=== PATIENT | female | born 1980 | race Caucasian/White ===

== ENCOUNTER 2017-06-25 14:24 | Emergency (ER) | payer MEDICAID ==
[2017-06-25 14:31] VITALS: BP 149/97
[2017-06-25] MEDS ORDERED: IBUPROFEN 800 MG TABLET PO ONE (15:36)
[2017-06-25] MEDS ORDERED: ONDANSETRON 4 MG TAB.RAPDIS PO ONE (15:36)
[2017-06-25] MEDS ORDERED: ACETAMINOPHEN 325 MG TABLET PO ONE (15:36)
[2017-06-25] MEDS ORDERED: PENICILLIN V POTASSIUM 500 MG TABLET PO ONE (15:36)
--- NOTE | 2017-06-25 15:42 | ER Document Report ---
HPI - HPI Patient complains to provider of: toothache Onset: Other - worse for 2 days Quality of pain: Throbbing Pain Level: 5 Context: 37 yo lost part of filling lower right 2nd molar 2 days ago, increased pain. No fever or facial swelling. Associated Symptoms: None Exacerbated by: Denies Relieved by: Denies - ROS ROS below otherwise negative: Yes Systems Reviewed and Negative: Yes All other systems reviewed and negative - REPRODUCTIVE LMP: 06/15/17 Past Medical History - General Information source: Patient - Social History Smoking Status: Current Every Day Smoker Chew tobacco use (# tins/day): No Frequency of alcohol use: None Drug Abuse: None Lives with: Family Family History: Reviewed & Not Pertinent Patient has suicidal ideation: No Patient has homicidal ideation: No - Medical History Medical History: Negative Renal/ Medical History: Denies: Hx Peritoneal Dialysis Surgical Hx: Negative Vertical Provider Document - CONSTITUTIONAL Agree With Documented VS: Yes Exam Limitations: No Limitations General Appearance: No Apparent Distress - INFECTION CONTROL TRAVEL OUTSIDE OF THE [place] IN LAST 30 DAYS: No - HEENT HEENT: Normocephalic Notes: partial filling and decay 2nd molar lower right, no gingival swelling. - NECK Neck: Supple. negative: Lymphadenopathy-Left, Lymphadenopathy-Right - RESPIRATORY Respiratory: Breath Sounds Normal, No Respiratory Distress O2 Sat by Pulse Oximetry: 98 - CARDIOVASCULAR Cardiovascular: Regular Rate, Regular Rhythm - NEURO Level of Consciousness: Awake, Alert, Appropriate - DERM Integumentary: Warm, Dry Course - Vital Signs Vital signs: Temp Pulse Resp BP Pulse Ox 98.4 F 74 20 149/97 H 98 06/25/17 14:30 06/25/17 14:30 06/25/17 14:30 06/25/17 14:30 06/25/17 14:30 Discharge - Discharge Clinical Impression: 2nd molar lower right decay/pain Condition: Good Disposition: HOME, SELF-CARE Instructions: Dentist, Dental Infection or Abscess ([facility]), Use of Over-The- Counter Ibuprofen ([facility]), Penicillin V K ([facility]), Toothache ([facility]), Warm Packs ([facility]) Additional Instructions: warm compress see dentist to er if worse Prescriptions: Ibuprofen [Motrin 800 mg Tablet] 800 mg PO Q8HP PRN #30 tablet PRN Reason: Penicillin V Potassium [Penicillin Vk 500 mg Tablet] 500 mg PO QID #40 tablet
== END 2017-06-25 15:53 | disposition home or self-care (01) ==
LOC: ER 14:24
DX: K02.9 Dental caries, unspecified (principal); K08.89 Other specified disorders of teeth and supporting structures; F17.200 Nicotine dependence, unspecified, uncomplicated
CPT/HCPCS: 99282; J3490 ×3; S0119

== ENCOUNTER 2017-10-27 18:38 | Emergency (ER) | payer SELFPAY ==
--- NOTE | 2017-10-27 18:59 | ER Document Report ---
HPI - HPI Patient complains to provider of: dental abscess Onset: Yesterday Onset/Duration: Gradual Pain Level: 5 Context: 37 yo female with dental decay developed swelling and abscess since yesterday. No fever. Associated Symptoms: None Exacerbated by: Denies Relieved by: Denies - ROS ROS below otherwise negative: Yes Systems Reviewed and Negative: Yes All other systems reviewed and negative Past Medical History - General Information source: Patient - Social History Smoking Status: Current Every Day Smoker Frequency of alcohol use: None Drug Abuse: None Lives with: Family Family History: Reviewed & Not Pertinent - Medical History Medical History: Negative Renal/ Medical History: Denies: Hx Peritoneal Dialysis Surgical Hx: Negative Vertical Provider Document - CONSTITUTIONAL Agree With Documented VS: Yes Exam Limitations: No Limitations General Appearance: No Apparent Distress - INFECTION CONTROL TRAVEL OUTSIDE OF THE [place] IN LAST 30 DAYS: No - HEENT HEENT: Normocephalic Notes: decay with abscess left lower 1st molar - NECK Neck: Supple. negative: Lymphadenopathy-Left, Lymphadenopathy-Right - MUSCULOSKELETAL/EXTREMETIES Musculoskeletal/Extremeties: MAEW - NEURO Level of Consciousness: Awake - DERM Integumentary: Abscess Course - Vital Signs Vital signs: Temp Pulse Resp BP Pulse Ox 98.2 F 77 18 124/75 95 10/27/17 18:47 10/27/17 18:47 10/27/17 18:47 10/27/17 18:47 10/27/17 18:47 Discharge - Discharge Clinical Impression: Dental abscess Condition: Good Disposition: HOME, SELF-CARE Instructions: Dentist, Penicillin V K ([facility]), Toothache ([facility]), Warm Packs ([facility]) Additional Instructions: Warm compress Penicillin Tylenol Motrin See the dentist Return to the emergency room for worsening of symptoms Prescriptions: Ibuprofen [Motrin 800 mg Tablet] 800 mg PO Q8HP PRN #30 tablet PRN Reason: Penicillin V Potassium [Penicillin Vk 500 mg Tablet] 500 mg PO QID #40 tablet Forms: Return to Work
[2017-10-27] MEDS ORDERED: PENICILLIN V POTASSIUM 500 MG TABLET PO ONE (19:20)
[2017-10-27] MEDS ORDERED: LIDOCAINE 2% VISCOUS SOLN 20 ML UDCUP PO ONE (19:20)
[2017-10-27] MEDS ORDERED: IBUPROFEN 800 MG TABLET PO ONE (19:20)
[2017-10-27 19:49] VITALS: BP 136/86
== END 2017-10-27 19:47 | disposition home or self-care (01) ==
LOC: ER 18:38
DX: K04.7 Periapical abscess without sinus (principal); K02.9 Dental caries, unspecified; F17.200 Nicotine dependence, unspecified, uncomplicated
CPT/HCPCS: 99283; J3490

== ENCOUNTER 2018-03-17 04:04 | Inpatient (IN) | payer SELFPAY ==
[2018-03-17 04:45] LABS: ABSOLUTE BASOPHILS # (AUTO) 0.1 10^3/uL (0.0-0.2); ABSOLUTE LYMPHOCYTES (AUTO) 1.9 10^3/uL (0.5-4.7); ABSOLUTE MONOCYTES (AUTO) 0.6 10^3/uL (0.1-1.4); BASOPHILS % (AUTO) 0.5 % (0-2); EOSINOPHILS % (AUTO) 0.3 % (0-6); HEMOGLOBIN 11.5 g/dL (12.0-15.5); LYMPHOCYTES % (AUTO) 18.2 % (13-45); MEAN CORPUSCULAR HEMOGLOBIN 31.7 pg (27.0-33.4); MEAN CORPUSCULAR HGB CONC 33.8 g/dL (32.0-36.0); MEAN CORPUSCULAR VOLUME 94 fl (80-97); MONOCYTES % (AUTO) 5.6 % (3-13); PLATELET COUNT 241 10^3/uL (150-450); RED BLOOD COUNT 3.62 10^6/uL (3.72-5.28); RED CELL DISTRIBUTION WIDTH 13.4 % (11.5-14.0); SEGMENTED NEUTROPHILS % (AUTO) 75.4 % (42-78); TOTAL CELLS COUNTED % (AUTO) 100 %; WHITE BLOOD COUNT 10.6 10^3/uL (4.0-10.5)
[2018-03-17] MEDS ORDERED: FENTANYL CITRATE INJ/PF 100 MCG/2 ML AMPUL IV ONE (05:12)
--- NOTE | 2018-03-17 05:22 | ER Document Report ---
ED Medical Screen (RME) - General Chief Complaint: Abdominal Pain Stated Complaint: ABDOMINAL PAIN Time Seen by Provider: 03/17/18 04:49 Notes: Patient is a 38-year-old female who presents to the emergency department with upper abdominal pain which started at 1800 last night. She describes the pain as a sharp pain that radiates to her left posterior shoulder. Her last menstrual period was last week. She does admit to drinking and states that is her "drug." Tonight she had an episode of diarrhea and has not voided since yesterday morning. TRAVEL OUTSIDE OF THE [place] IN LAST 30 DAYS: No - Related Data Allergies/Adverse Reactions: red dye Allergy (Verified 03/17/18 05:08) Past Medical History - General Information source: Patient - Social History Cigarette use (# per day): Yes Frequency of alcohol use: Occasional Drug Abuse: None Renal/ Medical History: Denies: Hx Peritoneal Dialysis Review of Systems - Review of Systems Gastrointestinal: See HPI Physical Exam - Abdominal Inspection: Normal Distension: Distended Tenderness: Tender, Guarding Organomegaly: No organomegaly Course - Laboratory Result Diagrams: 03/17/18 04:33 03/17/18 04:33 Laboratory results interpreted by me: 03/17/18 04:33 WBC 10.6 H RBC 3.62 L Hgb 11.5 L Hct 34.0 L
[2018-03-17] MEDS ORDERED: NORMAL SALINE 1000 ML 1,000 ML IV ONE (05:24)
[2018-03-17 05:31] LABS: ALANINE AMINOTRANSFERASE 46 U/L (9-52); ALBUMIN 3.5 g/dL (3.5-5.0); ALKALINE PHOSPHATASE 76 U/L (38-126); ANION GAP 15 (5-19); ASPARTATE AMINO TRANSFERASE 74 U/L (14-36); BILIRUBIN,DIRECT 0.2 mg/dL (0.0-0.4); BILIRUBIN,TOTAL 0.9 mg/dL (0.2-1.3); BLOOD UREA NITROGEN 8 mg/dL (7-20); CALCIUM 8.6 mg/dL (8.4-10.2); CARBON DIOXIDE 19 mmol/L (22-30); CHLORIDE 104 mmol/L (98-107); GLUCOSE 172 mg/dL (75-110); LIPASE 95.9 U/L (23-300); POTASSIUM 3.8 mmol/L (3.6-5.0); SODIUM 137.9 mmol/L (137-145); TOTAL PROTEIN 6.3 g/dL (6.3-8.2)
--- NOTE | 2018-03-17 06:21 | ER Document Report ---
ED GI/ - General Mode of Arrival: Ambulatory Information source: Patient TRAVEL OUTSIDE OF THE [place] IN LAST 30 DAYS: No <CECI CASTRO - Last Filed: 03/17/18 07:38> <SANDRA BROWN - Last Filed: 03/17/18 08:47> - General Chief Complaint: Abdominal Pain Stated Complaint: ABDOMINAL PAIN Time Seen by Provider: 03/17/18 04:49 Notes: 38-year-old female who presents to the emergency department today with complaints of upper abdominal pain. Patient states her pain began yesterday around 1800. Patient states the pain radiates to her upper back and into her shoulder. Patient states she is only able to lay on her right side, stating if she lays on her back or left side she has increasing pain that radiates to her shoulder. Patient states her last menstrual period began 4 days ago and ended yesterday. Patient states that it was on time but manager lan than a normal period. Patient states her pain is exacerbated with movement and deep breathing. ( CECI CASTRO) - Related Data Allergies/Adverse Reactions: red dye Allergy (Verified 03/17/18 05:08) Past Medical History - General Information source: Patient - Social History Smoking Status: Current Every Day Smoker Cigarette use (# per day): Yes Frequency of alcohol use: Occasional Drug Abuse: None Family History: Reviewed & Not Pertinent Patient has suicidal ideation: No Patient has homicidal ideation: No Surgical Hx: Negative <CECI CASTRO - Last Filed: 03/17/18 07:38> Review of Systems - Review of Systems Constitutional: No symptoms reported EENT: No symptoms reported Cardiovascular: No symptoms reported Respiratory: See HPI, Hurts to breathe Gastrointestinal: See HPI, Abdominal pain - radiating to back and shoulder Genitourinary: No symptoms reported Female Genitourinary: No symptoms reported Musculoskeletal: No symptoms reported Skin: No symptoms reported Hematologic/Lymphatic: No symptoms reported Neurological/Psychological: No symptoms reported -: Yes All other systems reviewed and negative <CECI CASTRO - Last Filed: 03/17/18 07:38> Physical Exam <CECI CASTRO - Last Filed: 03/17/18 07:38> <SANDRA BROWN - Last Filed: 03/17/18 08:47> - Vital signs Vitals: Pulse Resp BP Pulse Ox 73 23 H 121/59 L 100 03/17/18 05:41 03/17/18 05:41 03/17/18 05:41 03/17/18 05:41 - Notes Notes: Physical Exam: General: Alert, appears well. HEENT: Normocephalic. Atraumatic. PERRL. Extraocular movements intact. Oropharynx clear. Neck: Supple. Non-tender. Respiratory: No respiratory distress. Coarse breath sounds bilaterally consistent with smoking history. Cardiovascular: Regular rate and rhythm. Abdominal: Diffuse tenderness with palpation without any focal area of increased tenderness. Positive guarding. Reports that lying on her left side causes pain to radiate into shoulder. Unable to lie flat on back for abdominal exam. No distension. Normal Bowel Sounds. Back: Non-tender. No deformity or step off. Extremities: Moves all four extremities. Upper extremities: Normal inspection. Normal ROM. Lower extremities: Normal inspection. No edema. Normal ROM. Neurological: Normal cognition. AAOx4. Normal speech. Psychological: Normal affect. Normal Mood. Skin: Warm. Dry. Normal color. (CECI CASTRO) Course - Laboratory Result Diagrams: 03/17/18 04:33 03/17/18 04:33 <CECI CASTRO - Last Filed: 03/17/18 07:38> - Laboratory Result Diagrams: 03/17/18 04:33 03/17/18 04:33 - Diagnostic Test Radiology reviewed: Image reviewed, Reports reviewed - IV contrast CT scan of the abdomen pelvis shows extensive hemoperitoneum which is most significant in the left upper quadrant. There are low-density lesions in the spleen that may be the cause of the hemoperitoneum. There is a large amount of hyperdense fluid in the pelvis and some fluid around the liver. - EKG Interpretation by Me EKG shows normal: Sinus rhythm, [place], Intervals, QRS Complexes, ST-T Waves Rate: Normal - 57 Rhythm: NSR - Consults Dr. Montalvo Time consulted: 08:30 Consulted provider: will come to ER <SANDRA BROWN - Last Filed: 03/17/18 08:47> - Re-evaluation Re-evalutation: 03/17/18 08:26 8:01 AM Phone call was placed to the [facility] trauma service. I did discuss the case with the on-call trauma surgeon, who stated that I needed to talk with the general surgery department as this was not trauma related issues. 8:07 AM phone call was placed through refer direct to talk with the general surgeon ammonium hydroxide operator. 03/17/18 08:33 Dr. Montalvo was called to be made aware of the patient, after he reviewed her CT scan he thought that he could take care of her here and was going to come see the patient. 03/17/18 08:45 Dr. Flynn Dozier did return my call from [facility] surgery department, informed him that her surgeon was seeing the patient and felt comfortable taking care of her here and that I would call him back if anything changed. ( SANDRA BROWN) - Vital Signs Vital signs: Temp Pulse Resp BP Pulse Ox 97.8 F 73 21 H 105/56 L 99 03/17/18 08:01 03/17/18 05:41 03/17/18 08:31 03/17/18 08:31 03/17/18 08:31 - Laboratory Laboratory results interpreted by me: 03/17/18 03/17/18 03/17/18 04:33 04:33 08:00 WBC 10.6 H RBC 3.62 L Hgb 11.5 L Hct 34.0 L Carbon Dioxide 19 L Creatinine 0.51 L Glucose 172 H AST 74 H Crossmatch See Detail Critical Care Note - Critical Care Note Total time excluding time spent on procedures (mins): 40 <SANDRA BROWN - Last Filed: 03/17/18 08:47> Discharge <CECI CASTRO - Last Filed: 03/17/18 07:38> - Discharge Admitting Provider: Surgicalist Unit Admitted: Surgical Floor <SANDRA BROWN - Last Filed: 03/17/18 08:47> - Discharge Clinical Impression: Hemoperitoneum (nontraumatic), Splenic lesion Spleen hematoma Qualifiers: Encounter type: initial encounter Qualified Code(s): S36.029A - Unspecified contusion of spleen, initial encounter Condition: Serious Disposition: ADMITTED INPATIENT Scribe Attestation: 03/17/18 07:04 I personally performed the services described in the documentation, reviewed and edited the documentation which was dictated to the scribe in my presence, and it accurately records my words and actions. (SANDRA BROWN) Scribe Documentation - Scribe Written by Scribe:: Martín Davis, 03/17/2018 [id number] acting as scribe for :: Yelena <CECI CASTRO - Last Filed: 03/17/18 07:38>
[2018-03-17] MEDS ORDERED: RINGERS SOLUTION,LACTATED 1,000 ML IV ONE (06:22)
[2018-03-17] MEDS ORDERED: ONDANSETRON HCL INJ/PF 4 MG/2 ML SDV IV ONE ×2 (06:22→08:56)
[2018-03-17] MEDS ORDERED: MORPHINE SULFATE 10 MG/ML INJ IV ONE ×2 (06:22→08:56)
--- NOTE | 2018-03-17 08:05 | RADIOLOGY REPORT (SQ) ---
CLINICAL HISTORY: Diffuse abdominal pain, radiates to left shoulder COMPARISON: None. TECHNIQUE: CT ABDOMEN PELVIS WITH IV CONTRAST on 03/17/2018 7:03 AM CDT This exam was performed according to our departmental dose-optimization program, which includes automated exposure control, adjustment of the mA and/or kV according to patient size and/or use of iterative reconstruction technique. FINDINGS: Lower lungs are clear. Abdomen: Liver is normal in appearance. There is perihepatic ascites. There is no biliary dilatation. Gallbladder is normal in appearance. There are hypodensities within the upper pole of the spleen. There is extensive perisplenic hyperdense fluid. The adrenal glands and kidneys are unremarkable. Pancreas is normal. Abdominal aorta is normal in course and caliber without aneurysm. There is no free air. There is no retroperitoneal adenopathy. Pelvis: There is no bowel obstruction. Urinary bladder is unremarkable. There is no free fluid. Uterus is normal in size. Appendix is normal. There is large amount of hyperdense fluid in the pelvis. Skeleton: There are no acute osseous findings. No suspicious bony lesions. IMPRESSION: Extensive hemoperitoneum, most significant in the left upper quadrant. Low-density lesions in the spleen are indeterminate but are likely the cause of hemoperitoneum. Underlying splenic injury is not excluded although no such history has been given. Findings were discussed with patient's emergency department physician.
[2018-03-17] MEDS ORDERED: NORMAL SALINE 250 ML IV PRN (08:16)
[2018-03-17 08:22] LABS: INTERNATIONAL RATION (INR) 0.96; PROTHROMBIN TIME 13.3 SEC (11.4-15.4)
[2018-03-17] MEDS ORDERED: ROCURONIUM BROMIDE INJ 50 MG/5 ML VIAL IV ONE (08:44)
[2018-03-17] MEDS ORDERED: SUCCINYLCHOLINE CHLORIDE INJ 200 MG/10 ML VIAL ONE (08:44)
--- NOTE | 2018-03-17 08:56 | PDOC H&P ---
History of Present Illness Patient complains of: Left upper quadrant and left flank pain History of Present Illness: ANTON MARKHAM is a 38 year old female with no previous medical history. She reports increasing amounts of left upper quadrant and left flank pain over the last 12 hours. The patient presented to the emergency department and was found to have a large splenic hematoma with active extravasation. The patient denies any trauma. She denies car accident, falls, or any other blunt mechanism. She denies chest pain, shortness of breath, fevers, chills, nausea, vomiting, melena , hematochezia, hematemesis. She does report fatigue and malaise as well as severe left back pain and flank pain. Past Medical History Medical History: None Past Surgical History Past Surgical History: Reports: None Social History Smoking Status: Current Every Day Smoker Family History Family History: Reviewed & Not Pertinent Parental Family History Reviewed: Yes Children Family History Reviewed: Yes Sibling(s) Family History Reviewed.: Yes Medication/Allergy Home Medications: No Home Medications 03/17/18 Allergies/Adverse Reactions: red dye Allergy (Verified 03/17/18 05:08) Review of Systems Constitutional: PRESENT: fatigue, weakness. ABSENT: anorexia, chills, fever(s) , headache(s) Eyes: ABSENT: visual disturbances Ears: ABSENT: hearing changes Nose, Mouth, and Throat: ABSENT: mouth pain, sore throat Cardiovascular: ABSENT: chest pain Respiratory: ABSENT: cough, dyspnea Gastrointestinal: PRESENT: abdominal pain. ABSENT: constipation, diarrhea, heartburn Musculoskeletal: PRESENT: back pain Integumentary: ABSENT: pruritus, rash Neurological: ABSENT: abnormal gait, abnormal speech, confusion, convulsions Psychiatric: ABSENT: anxiety, depression Endocrine: ABSENT: cold intolerance, heat intolerance Hematologic/Lymphatic: ABSENT: easy bleeding, easy bruising Physical Exam Vital Signs: Temp Pulse Resp BP Pulse Ox 97.8 F 73 21 H 105/56 L 99 03/17/18 08:01 03/17/18 05:41 03/17/18 08:31 03/17/18 08:31 03/17/18 08:31 Intake & Output 03/16/18 03/17/18 03/18/18 06:59 06:59 06:59 Intake Total 1000 Balance 1000 Weight 75 kg General appearance: PRESENT: no acute distress Head exam: PRESENT: atraumatic, normocephalic Eye exam: PRESENT: EOMI, PERRLA. ABSENT: scleral icterus Mouth exam: ABSENT: moist, neck supple Teeth exam: ABSENT: poor dentation Neck exam: ABSENT: meningismus, tenderness, thyromegaly, tracheal deviation Respiratory exam: PRESENT: clear to auscultation vicky. ABSENT: chest wall tenderness Cardiovascular exam: PRESENT: RRR Pulses: PRESENT: normal radial pulses Vascular exam: PRESENT: normal capillary refill, pallor GI/Abdominal exam: PRESENT: tenderness. ABSENT: distended, rebound Rectal exam: PRESENT: deferred Extremities exam: ABSENT: clubbing Musculoskeletal exam: ABSENT: deformity Neurological exam: PRESENT: alert, awake, oriented to person, oriented to place , oriented to time, oriented to situation, CN II-XII grossly intact Psychiatric exam: PRESENT: anxious. ABSENT: agitated, depressed Focused psych exam: ABSENT: delusional Skin exam: ABSENT: cyanosis, erythema, jaundice Results Laboratory Results: 03/17/18 04:33 03/17/18 04:33 03/17/18 03/17/18 03/17/18 04:33 04:33 04:33 WBC 10.6 H RBC 3.62 L Hgb 11.5 L Hct 34.0 L MCV 94 MCH 31.7 MCHC 33.8 RDW 13.4 Plt Count 241 Seg Neutrophils % 75.4 Lymphocytes % 18.2 Monocytes % 5.6 Eosinophils % 0.3 Basophils % 0.5 Absolute Neutrophils 8.0 Absolute Lymphocytes 1.9 Absolute Monocytes 0.6 Absolute Eosinophils 0.0 Absolute Basophils 0.1 Sodium 137.9 Potassium 3.8 Chloride 104 Carbon Dioxide 19 L Anion Gap 15 BUN 8 Creatinine 0.51 L Est GFR ( Amer) > 60 Est GFR (Non-Af Amer) > 60 Glucose 172 H Calcium 8.6 Total Bilirubin 0.9 AST 74 H ALT 46 Alkaline Phosphatase 76 Total Protein 6.3 Albumin 3.5 Lipase 95.9 Serum HCG, Qual NEGATIVE Impressions: Abdomen/Pelvis CT 03/17/18 07:03 IMPRESSION: Extensive hemoperitoneum, most significant in the left upper quadrant. Low-density lesions in the spleen are indeterminate but are likely the cause of hemoperitoneum. Underlying splenic injury is not excluded although no such history has been given. Findings were discussed with patient's emergency department physician. Assessment & Plan - Diagnosis (2) Spleen hematoma Qualifiers: Encounter type: initial encounter Qualified Code(s): S36.029A - Unspecified contusion of spleen, initial encounter Is this a current diagnosis for this admission?: Yes - Plan Summary Plan Summary: There is a 38-year-old female with a ruptured splenic hematoma. There is a blush on CT scan. The patient denies a history of trauma. I have recommended urgent splenectomy to control the bleeding. The patient has agreed to this. Risks/benefits discussed, informed consent obtained, and all questions answered.
--- NOTE | 2018-03-17 10:01 | EKG REPORT ---
SEVERITY:- NORMAL ECG - SINUS RHYTHM : Confirmed by: Tere De Luna 17-Mar-2018 10:00:11
[2018-03-17] MEDS ORDERED: ONDANSETRON HCL INJ/PF 4 MG/2 ML SDV ONE (10:10)
[2018-03-17] MEDS ORDERED: DEXAMETHASONE SOD PHOSPHATE INJ 4 MG/1 ML VIAL ONE (10:10)
[2018-03-17] MEDS ORDERED: MORPHINE SULFATE 10 MG/ML INJ ONE (10:10)
[2018-03-17] MEDS ORDERED: MIDAZOLAM 2 MG/2 ML INJ ONE (10:10)
[2018-03-17] MEDS ORDERED: FENTANYL CITRATE INJ/PF 250 MCG/5 ML AMPULE ONE (10:10)
[2018-03-17] MEDS ORDERED: EPHEDRINE SULFATE INJ 50 MG/1 ML AMPULE ONE (10:11)
[2018-03-17] MEDS ORDERED: PROPOFOL INJ 200 MG/20 ML VIAL IV ONE (10:11)
[2018-03-17] MEDS ORDERED: ACETAMINOPHEN 1,000 MG/100 ML RTUPB IV ONE (10:11)
[2018-03-17] MEDS ORDERED: BUPIVACAINE HCL 0.5 % INJ/PF 30 ML SDV ONE (10:15)
[2018-03-17] MEDS ORDERED: CEFAZOLIN INJ 1 GM VIAL ONE (10:38)
[2018-03-17] MEDS ORDERED: DIPHENHYDRAMINE HCL 50 MG/ML VIAL IV PRN (11:21)
[2018-03-17] MEDS ORDERED: PROMETHAZINE HCL INJ 25 MG/1 ML VIAL IV PRN ×2 (11:21)
[2018-03-17] MEDS ORDERED: MORPHINE SULFATE 10 MG/ML INJ IV PRN (11:21)
[2018-03-17] MEDS ORDERED: FENTANYL CITRATE INJ/PF 100 MCG/2 ML AMPUL IV PRN ×3 (11:21)
[2018-03-17] MEDS ORDERED: MEPERIDINE HCL/PF INJ 25 MG/1 ML DISP.SYRIN IV PRN (11:21)
[2018-03-17] MEDS: FENTANYL CITRATE INJ/PF 100 MCG/2 ML AMPUL ONE ×2 (12:22→12:27)
[2018-03-17 12:45] LABS: HEMATOCRIT 29.2 % (36.0-47.0); MEAN CORPUSCULAR HEMOGLOBIN 31.5 pg (27.0-33.4); MEAN CORPUSCULAR HGB CONC 34.3 g/dL (32.0-36.0); MEAN CORPUSCULAR VOLUME 92 fl (80-97); PLATELET COUNT 174 10^3/uL (150-450); RED BLOOD COUNT 3.17 10^6/uL (3.72-5.28); RED CELL DISTRIBUTION WIDTH 13.2 % (11.5-14.0)
[2018-03-17] MEDS: HYDROMORPHONE HCL INJ/PF 2 MG/ML AMPULE ONE ×2 (12:45→12:50)
[2018-03-17 13:30] LABS: ANION GAP 10 (5-19); BLOOD UREA NITROGEN 5 mg/dL (7-20); CALCIUM 7.2 mg/dL (8.4-10.2); CARBON DIOXIDE 21 mmol/L (22-30); CHLORIDE 108 mmol/L (98-107); GLUCOSE 122 mg/dL (75-110); POTASSIUM 3.8 mmol/L (3.6-5.0); SODIUM 138.5 mmol/L (137-145)
[2018-03-17] MEDS ORDERED: DEXTROSE 5%-LACTATED RINGERS 1,000 ML IV PRN (14:20)
[2018-03-17] MEDS ORDERED: ONDANSETRON HCL INJ/PF 4 MG/2 ML SDV IV PRN (14:20)
[2018-03-17] MEDS: MORPHINE SULFATE 10 MG/ML INJ IV PRN ×2 (16:35→20:36)
[2018-03-17] MEDS: DOCUSATE SODIUM 100 MG CAPSULE PO SCH (17:10)
[2018-03-17] MEDS ORDERED: HAEMPH B POLYSAC CONJ-MENIN/PF 0.5 ML VIAL IM ONE (18:45)
[2018-03-17] MEDS ORDERED: PNEUMOCOCCAL 23-VAL P-SAC VAC 0.5 ML VIAL IM PRN (18:45)
--- NOTE | 2018-03-17 18:58 | Operative Report ---
Nonrecallable Operative Report DATE OF SURGERY: 03/17/18 PREOPERATIVE DIAGNOSIS: 1. Splenic laceration. 2. Hemoperitoneum POSTOPERATIVE DIAGNOSIS: Same as above OPERATION: 1. Exploratory laparotomy. 2. Splenectomy SURGEON: NADJA BANERJEE ANESTHESIA: GA TISSUE REMOVED OR ALTERED: Spleen COMPLICATIONS: None apparent ESTIMATED BLOOD LOSS: Approximately 1 L of old blood in the abdomen PROCEDURE: Drains/implants: None. Procedure in detail: After informed consent was obtained, the patient was brought to the operating room and laid in supine position. The area of the abdomen was prepped and draped in a normal sterile fashion. A 10 scalpel was used to create a vertical midline incision from the xiphoid process down to the umbilicus. Dissection was carried through the subcutaneous tissue using blunt dissection. The linea alba fascia was incised sharply, the abdomen was entered sharply. Immediately there was noted to be a large amount of hemoperitoneum. Packs were placed into the left upper quadrant very quickly. Using the pool suction device a large amount of the liquid blood was removed. The packs were removed and pressure was held against the spleen. The spleen was mobilized medially using blunt dissection. The [place] 60 stapling device was used with vascular loads to staple across the hilum of the spleen. The spleen was then removed from the patient. Packs were again placed in the left upper quadrant and held for hemostasis. The packs were removed and the left upper quadrant was inspected. Good hemostasis was achieved. Next, attention was turned to the examination of the remainder of the abdomen. The colon was inspected and found to be free of any defect. The pelvis was inspected. The female organs were without obvious defect. The small bowel was run from the ligament of Treitz to the ileocecal valve. No obvious defect could be identified. The mesentery appeared normal. The liver was smooth, without obvious defect or areas of bleeding. The stomach appeared normal. The lesser sac was not entered. The gallbladder and abimbola appeared normal without bile staining or suspicious abnormality. The abdomen was then copiously irrigated and suctioned until clear. The linea alba fascia was then closed using #1 double-stranded looped PDS suture in simple running fashion. The overlying skin was closed using skin torres. A dressing was placed, and the procedure was concluded. All sponge, instrument, and needle counts were correct x2. Condition: Fair.
[2018-03-18] MEDS: MORPHINE SULFATE 10 MG/ML INJ IV PRN ×2 (02:38→07:42)
[2018-03-18 04:54] LABS: HEMATOCRIT 23.8 % (36.0-47.0); HEMOGLOBIN 8.3 g/dL (12.0-15.5); MEAN CORPUSCULAR HEMOGLOBIN 31.7 pg (27.0-33.4); MEAN CORPUSCULAR HGB CONC 34.8 g/dL (32.0-36.0); MEAN CORPUSCULAR VOLUME 91 fl (80-97); PLATELET COUNT 163 10^3/uL (150-450); RED CELL DISTRIBUTION WIDTH 13.8 % (11.5-14.0); WHITE BLOOD COUNT 16.4 10^3/uL (4.0-10.5)
[2018-03-18 05:12] LABS: ANION GAP 7 (5-19); CALCIUM 7.9 mg/dL (8.4-10.2); CARBON DIOXIDE 28 mmol/L (22-30); CHLORIDE 104 mmol/L (98-107); GLUCOSE 132 mg/dL (75-110); POTASSIUM 3.8 mmol/L (3.6-5.0); SODIUM 138.7 mmol/L (137-145)
[2018-03-18 05:17] LABS: BLOOD UREA NITROGEN < 2 mg/dL (7-20)
[2018-03-18] MEDS: OXYCODONE-ACETAMINOPHEN 5-325 MG TABLET PO PRN ×4 (07:41→20:22)
--- NOTE | 2018-03-18 07:53 | PDOC PROGRESS REPORT ---
Subjective Progress Note for:: 03/18/18 Reason For Visit: RUPTURED SPLEEN Physical Exam Vital Signs: Temp Pulse Resp BP Pulse Ox 98.6 F 66 16 107/58 L 97 03/17/18 23:21 03/17/18 23:21 03/17/18 23:21 03/17/18 23:21 03/17/18 23:21 Intake & Output 03/17/18 03/18/18 03/19/18 06:59 06:59 06:59 Intake Total 5156 Output Total 4925 Balance 231 Results Laboratory Results: 03/18/18 04:09 03/18/18 04:09 03/17/18 03/17/18 03/17/18 09:10 12:30 12:30 WBC 22.0 H D RBC 3.17 L Hgb 10.0 L Hct 29.2 L MCV 92 MCH 31.5 MCHC 34.3 RDW 13.2 Plt Count 174 Sodium 138.5 Potassium 3.8 Chloride 108 H Carbon Dioxide 21 L Anion Gap 10 BUN 5 L Creatinine 0.51 L Est GFR ( Amer) > 60 Est GFR (Non-Af Amer) > 60 Glucose 122 H Lactic Acid 1.0 Calcium 7.2 L 03/18/18 03/18/18 04:09 04:09 WBC 16.4 H RBC 2.60 L Hgb 8.3 L Hct 23.8 L MCV 91 MCH 31.7 MCHC 34.8 RDW 13.8 Plt Count 163 Sodium 138.7 Potassium 3.8 Chloride 104 Carbon Dioxide 28 Anion Gap 7 BUN < 2 L Creatinine 0.50 L Est GFR ( Amer) > 60 Est GFR (Non-Af Amer) > 60 Glucose 132 H Lactic Acid Calcium 7.9 L Impressions: Abdomen/Pelvis CT 03/17/18 07:03 IMPRESSION: Extensive hemoperitoneum, most significant in the left upper quadrant. Low-density lesions in the spleen are indeterminate but are likely the cause of hemoperitoneum. Underlying splenic injury is not excluded although no such history has been given. Findings were discussed with patient's emergency department physician. Assessment & Plan - Diagnosis (2) Spleen hematoma Qualifiers: Encounter type: initial encounter Qualified Code(s): S36.029A - Unspecified contusion of spleen, initial encounter Is this a current diagnosis for this admission?: Yes - Plan Summary Plan Summary: This is a 38-year-old female status post exploratory laparotomy with splenectomy. The patient is doing well today. Her back pain has resolved. She reports tenderness at the midline incision, which is normal. She denies fevers, chills, nausea, vomiting. I have encouraged the patient to ambulate today. I will discontinue her Jose catheter. I will advance her diet as tolerated. Haemophilus, strep pneumoniae, and meningitis vaccines have been ordered.
[2018-03-18] MEDS: DOCUSATE SODIUM 100 MG CAPSULE PO SCH ×2 (10:51→17:59)
[2018-03-19] MEDS: OXYCODONE-ACETAMINOPHEN 5-325 MG TABLET PO PRN ×4 (02:12→16:56)
[2018-03-19 05:18] LABS: HEMATOCRIT 22.8 % (36.0-47.0); MEAN CORPUSCULAR HEMOGLOBIN 31.7 pg (27.0-33.4); MEAN CORPUSCULAR HGB CONC 34.4 g/dL (32.0-36.0); MEAN CORPUSCULAR VOLUME 92 fl (80-97); PLATELET COUNT 166 10^3/uL (150-450); RED BLOOD COUNT 2.47 10^6/uL (3.72-5.28); WHITE BLOOD COUNT 10.9 10^3/uL (4.0-10.5)
[2018-03-19 05:20] LABS: HEMOGLOBIN 7.8 g/dL (12.0-15.5)
[2018-03-19] MEDS: DOCUSATE SODIUM 100 MG CAPSULE PO SCH ×2 (12:41→16:57)
[2018-03-19 16:38] LABS: HEMATOCRIT 31.4 % (36.0-47.0); MEAN CORPUSCULAR HEMOGLOBIN 31.6 pg (27.0-33.4); MEAN CORPUSCULAR HGB CONC 34.9 g/dL (32.0-36.0); MEAN CORPUSCULAR VOLUME 91 fl (80-97); PLATELET COUNT 204 10^3/uL (150-450); RED BLOOD COUNT 3.47 10^6/uL (3.72-5.28); RED CELL DISTRIBUTION WIDTH 14.3 % (11.5-14.0); WHITE BLOOD COUNT 10.4 10^3/uL (4.0-10.5)
[2018-03-19 16:46] VITALS: BP 121/59
--- NOTE | 2018-03-20 09:46 | DISCHARGE SUMMARY E ---
Discharge Summary NAME: ANTON MARKHAM : 1980 AGE: 38Y ADMITTED: 03/17/2018 DISCHARGED: 03/19/2018 FINAL DIAGNOSES: 1. Splenic laceration. 2. Hemoperitoneum. OPERATIONS: Exploratory laparotomy, splenectomy, 03/17/2018. HOSPITAL COURSE: Post splenectomy, patient's hemoglobin dropped to 7.8 likely due to equilibration. Her vital signs are stable. She had 2 units of packed cells on 03/19/2018 with the hemoglobin going up to 11. Patient able to tolerate diet well. The incision site looks good on the day of discharge, on 03/19/2018. DISCHARGE INSTRUCTIONS: Patient to be followed up in the surgical clinic in 2 weeks. Patient advised not to do any lifting more than 10 to 15 pounds over the next 4 weeks. DICTATING PHYSICIAN: MARY WAYNE M.D. [id number] PHY#: [id number] ID: [id number] JOB#: [id number] ACCT: [id number] cc:Domingo CODY M.D. > MTDD
== END 2018-03-19 17:15 | disposition home or self-care (01) | DRG 799 ==
LOC: ER 04:04 → EH 08:58 → 5 14:19
PROVIDERS: ADMIT Surgery; ATTEND Surgery
PROC: 30233K1 Transfusion of Nonautologous Frozen Plasma into Peripheral Vein, Percutaneous Approach (ICD-10-PCS; 2018-03-17)
PROC: 30233N1 Transfusion of Nonautologous Red Blood Cells into Peripheral Vein, Percutaneous Approach (ICD-10-PCS; 2018-03-17)
PROC: 07BP0ZZ Excision of Spleen, Open Approach (ICD-10-PCS; principal; 2018-03-17 11:00)
PROC: 30233N1 Transfusion of Nonautologous Red Blood Cells into Peripheral Vein, Percutaneous Approach (ICD-10-PCS; 2018-03-19)
PROC: 3E0234Z Introduction of Serum, Toxoid and Vaccine into Muscle, Percutaneous Approach (ICD-10-PCS; 2018-03-19)
DX: S36.029A Unspecified contusion of spleen, initial encounter (principal); K66.1 Hemoperitoneum; X58.XXXA Exposure to other specified factors, initial encounter; F17.210 Nicotine dependence, cigarettes, uncomplicated; Z23 Encounter for immunization; Z91.048 Other nonmedicinal substance allergy status
CPT/HCPCS: 36415; 36430; 74177; 790; 80048; 80053; 81025; 83605; 83690; 84703; 85025; 85027; 85610; 86850; 86900; 86901; 86920; 88307; 88341; 88342; 90471; 90732; 93005; 93010; 94799; 96361; 96374; 96375; 96376; 99291; G0009; J0131; J0330; J0690; J1100; J1170; J2250; J2270; J2405; J2704; J3010; J3490; J7030; J7120; P9016; P9017

== ENCOUNTER 2018-06-08 22:59 | Emergency (ER) | payer MEDICAID ==
[2018-06-08 23:22] VITALS: BP 120/76
--- NOTE | 2018-06-09 01:16 | ER Document Report ---
ED General - General Chief Complaint: ETOH Abuse Stated Complaint: ETOH Time Seen by Provider: 06/09/18 01:13 Mode of Arrival: Ambulatory Information source: Patient, Relative, [facility] Records Cannot obtain history due to: Uncooperative Notes: 38-year-old female with a history of alcohol abuse presents via EMS intoxicated and states that she wants admission for detox. Patient's friend is at the bedside and states that the patient has been heavily drinking for months. She states that she called EMS tonight because she felt like she was having a "nervous breakdown". Patient denies suicidal, homicidal ideation. She reports increased stress at home. I informed the patient that we do not detox patients from alcohol in the hospital but if she was interested in rehabilitation we could wait until the morning when she is sober and provide her with resources and a Librium taper but the patient immediately got up from the bed stormed out and stated that she would check herself into rehab tomorrow. TRAVEL OUTSIDE OF THE [place] IN LAST 30 DAYS: No - HPI Onset: Other Onset/Duration: Sudden Quality of pain: No pain Severity: None Associated symptoms: None Exacerbated by: Denies Relieved by: Denies Similar symptoms previously: Yes Recently seen / treated by doctor: Yes - Related Data Allergies/Adverse Reactions: red dye Allergy (Verified 03/17/18 05:08) Past Medical History - General Information source: Patient, [facility] Records - Social History Smoking Status: Current Every Day Smoker Frequency of alcohol use: Heavy Drug Abuse: None Lives with: Spouse/Significant other Family History: Reviewed & Not Pertinent Patient has suicidal ideation: No Patient has homicidal ideation: No - Medical History Medical History: Negative Renal/ Medical History: Denies: Hx Peritoneal Dialysis - Immunizations Hx Pneumococcal Vaccination: 03/19/18 Review of Systems - Review of Systems -: Yes ROS unobtainable due to patient's medical condition Physical Exam - Vital signs Vitals: Temp Pulse Resp BP Pulse Ox 98.1 F 88 22 H 120/76 97 06/08/18 23:20 06/08/18 23:20 06/08/18 23:20 06/08/18 23:20 06/08/18 23:20 - Notes Notes: PHYSICAL EXAMINATION: GENERAL: Disheveled, obviously intoxicated HEAD: Atraumatic, normocephalic. NECK: Normal range of motion LUNGS: No respiratory distress Musculoskeletal: Normal range of motion NEUROLOGICAL: Normal speech, normal gait. PSYCH: Normal mood, normal affect. SKIN: Warm, Dry, normal turgor, no rashes or lesions noted. Course - Re-evaluation Re-evalutation: 06/09/18 01:22 38-year-old female with a history of alcohol abuse presents via EMS intoxicated and states that she wants admission for detox. Patient's friend is at the bedside and states that the patient has been heavily drinking for months. She states that she called EMS tonight because she felt like she was having a "nervous breakdown". Patient denies suicidal, homicidal ideation. She reports increased stress at home. I informed the patient that we do not detox patients from alcohol in the hospital but if she was interested in rehabilitation we could wait until the morning when she is sober and provide her with resources and a Librium taper but the patient immediately got up from the bed stormed out and stated that she would check herself into rehab tomorrow. Patient eloped and walked out of the emergency department with her friend who states that he will drive her home. - Vital Signs Vital signs: Temp Pulse Resp BP Pulse Ox 98.1 F 88 22 H 120/76 97 06/08/18 23:20 06/08/18 23:20 06/08/18 23:20 06/08/18 23:20 06/08/18 23:20 Discharge - Discharge Clinical Impression: Alcohol intoxication Qualifiers: Complication of substance-induced condition: uncomplicated Qualified Code(s): F10.920 - Alcohol use, unspecified with intoxication, uncomplicated Condition: Good Disposition: ELOPED Instructions: Acute Alcohol Intoxication ([facility])
== END 2018-06-09 01:15 | disposition left against medical advice (07) ==
LOC: ER 22:59
DX: Z53.21 Procedure and treatment not carried out due to patient leaving prior to being seen by health care provider (principal); F10.920 Alcohol use, unspecified with intoxication, uncomplicated; F17.200 Nicotine dependence, unspecified, uncomplicated
CPT/HCPCS: 99281